=== PATIENT | male | born 1955 | race Caucasian/White ===

== ENCOUNTER 2017-01-09 17:19 | Emergency (ER) | payer BC ==
[2017-01-09] MEDS ORDERED: SODIUM CHLORIDE 0.9% 1,000 ML IV ONE (18:21)
--- NOTE | 2017-01-09 18:26 | ED ---
General Adult HPI - General Chief complaint: Recheck/Abnormal Lab/Rx Stated complaint: Dehydration-Dr Brooke. Time Seen by Provider: 01/09/17 18:13 Source: patient Mode of arrival: ambulatory Limitations: no limitations - History of Present Illness Initial comments: Patient is a 62-year-old male with past medical history of GERD and diabetes who presents to the emergency department for evaluation of abnormal outpatient labs. The patient states that last week he had 3 days of persistent nausea and vomiting, he reports that last Friday and he had syncopal episodes. He called his primary care provider and was seen on Friday of this week. He reports that at that time he was noted to have low blood pressure, blood work was obtained at that time. Patient reports that today he received a call from his primary care provider and was advised that his blood work indicated that he was severely dehydrated and his primary care provider advised him to come to the emergency department for further evaluation. Patient reports that he has been able to tolerate by mouth intake for the past few days, he reports he is eating and drinking well. He denies any further episodes of nausea or vomiting. She denies any further lightheadedness or syncopal episodes since last week. He reports that his primary care provider performed EKG on Friday and advised him that there were no acute findings. Patient reports that he has been diagnosed with GERD and that every 2-3 weeks he seems to have episodes where he has worsening epigastric abdominal burning, nausea and vomiting. He reports that he's been trying to keep track of this and believes that these episodes are caused by eating chicken. He states that he has made it a point to begin avoiding this in his diet to see if this improves his symptoms. Patient does report being compliant with his oral medications including Protonix. - Related Data Home Medications Medication Instructions Recorded Confirmed Allopurinol [Zyloprim] 300 mg PO DAILY 01/09/17 01/09/17 Aspirin [Adult Low Dose Aspirin EC] 81 mg PO DAILY 01/09/17 01/09/17 Benazepril [Lotensin] 10 mg PO DAILY PRN 01/09/17 01/09/17 Bisoprolol-Hctz 5-6.25 mg [Ziac 1 tab PO DAILY 01/09/17 01/09/17 5-6.25] Ezetimibe [Zetia] 10 mg PO DAILY 01/09/17 01/09/17 INSULIN LISPRO (HumaLOG) [HumaLOG] See Protocol SQ TID 01/09/17 01/09/[address] [place]-3 Fatty Acids/Fish Oil [Fish 1 cap PO BID 01/09/17 01/09/17 Oil 1,000 mg Softgel] Pantoprazole [Protonix] 40 mg PO DAILY 01/09/17 01/09/17 Pitavastatin Calcium [Livalo] 1 mg PO DAILY 01/09/17 01/09/17 valACYclovir HCL [Valtrex] 500 mg PO DAILY 01/09/17 01/09/17 Allergies Allergy/AdvReac Type Severity Reaction Status Date / Time No Known Allergies Allergy Verified 01/09/17 19:08 Review of Systems ROS Statement: Those systems with pertinent positive or pertinent negative responses have been documented in the HPI. ROS Other: All systems not noted in ROS Statement are negative. Constitutional: Reports: chills (With episodes of vomiting last week). Denies: fever Eyes: Denies: vision change ENT: Denies: congestion Respiratory: Denies: cough, dyspnea Cardiovascular: Reports: syncope (Last week, January 01 & ). Denies: chest pain, palpitations Endocrine: Reports: fatigue Gastrointestinal: Reports: nausea, vomiting Genitourinary: Denies: urgency, dysuria Musculoskeletal: Denies: back pain Skin: Denies: rash, lesions Neurological: Denies: headache, weakness, numbness, paresthesias, confusion Psychiatric: Denies: anxiety, depression Hematological/Lymphatic: Denies: easy bleeding, easy bruising Past Medical History Past Medical History: Diabetes Mellitus, Hyperlipidemia, Hypertension Additional Past Medical History / Comment(s): back pain, syncope History of Any Multi-Drug Resistant Organisms: None Reported Past Surgical History: Hernia Repair, Orthopedic Surgery Additional Past Surgical History / Comment(s): dental implant Past Psychological History: No Psychological Hx Reported Smoking Status: Never smoker Past Alcohol Use History: Daily Past Drug Use History: None Reported General Exam Limitations: no limitations General appearance: alert, in no apparent distress Head exam: Present: atraumatic, normocephalic Eye exam: Present: normal appearance, PERRL ENT exam: Present: normal exam, normal oropharynx, mucous membranes moist Neck exam: Present: normal inspection Respiratory exam: Present: normal lung sounds bilaterally Cardiovascular Exam: Present: regular rate, normal rhythm, normal heart sounds. Absent: tachycardia GI/Abdominal exam: Present: soft. Absent: distended, tenderness, guarding, rebound, rigid Rectal exam: Present: deferred Extremities exam: Present: normal inspection Neurological exam: Present: alert, oriented X3 Psychiatric exam: Present: normal affect, normal mood Skin exam: Present: warm, dry, intact, normal color. Absent: rash Course Vital Signs 01/09/17 01/09/17 01/09/17 17:48 19:19 20:31 Temperature 98.1 F 99.2 F 98.1 F Pulse Rate 80 69 71 Respiratory 20 18 19 Rate Blood Pressure 184/92 170/97 173/97 O2 Sat by Pulse 99 100 99 Oximetry Medical Decision Making - Medical Decision Making Patient was seen and evaluated History is obtained from the patient Clinically patient does not appear dehydrated, blood pressure is normal labs and IV fluids were ordered Labs revealed mild elevation of AST and ALT this is consistent with the patient' s recent history of vomiting Patient has significant hypomagnesemia, IV replacement was ordered Hypo-kalemia replaced with by mouth potassium Patient reports he is feeling well, has been able tolerate oral intake well waiting in the emergency department Patient is denying any abdominal pain, eager for discharge home Patient decided he didn't want to continue to wait for IV magnesium infusion, he agreed to wait for 1 g. One oral dose was also ordered. Second Gram of magnesium discontinued All questions pertaining to care were answered to the best of my ability. Results were discussed with the patient and patient was advised to follow up with his primary care physician for repeat evaluation of his elevated liver enzymes and kidney function. A she expressed understanding and agreement with the plan for discharge home with close follow-up with primary care. Patient was advised to return to the emergency department if he develops any worsening abdominal pain, nausea or vomiting or any signs or symptoms of dehydration. - Lab Data Result diagrams: 01/09/17 18:50 01/09/17 18:50 Lab Results 01/09/17 01/09/17 01/09/17 Range/Units 18:50 18:50 18:50 WBC 3.9 (3.8-10.6) k/uL RBC 3.84 L (4.30-5.90) m/uL Hgb 14.0 (13.0-17.5) gm/dL Hct 37.8 L (39.0-53.0) % MCV 98.4 (80.0-100.0) fL MCH 36.4 H (25.0-35.0) pg MCHC 37.0 (31.0-37.0) g/dL RDW 13.0 (11.5-15.5) % Plt Count 129 L (150-450) k/uL Neutrophils % 55 % Lymphocytes % 27 % Monocytes % 12 % Eosinophils % 1 % Basophils % 1 % Neutrophils # 2.2 (1.3-7.7) k/uL Lymphocytes # 1.1 (1.0-4.8) k/uL Monocytes # 0.5 (0-1.0) k/uL Eosinophils # 0.0 (0-0.7) k/uL Basophils # 0.0 (0-0.2) k/uL Sodium 138 (137-145) mmol/L Potassium 3.4 L (3.5-5.1) mmol/L Chloride 92 L (98-107) mmol/L Carbon Dioxide 30 (22-30) mmol/L Anion Gap 16 mmol/L BUN 30 H (9-20) mg/dL Creatinine 1.10 (0.66-1.25) mg/dL Est GFR (MDRD) Af Amer >60 (>60 ml/min/1.73 sqM) Est GFR (MDRD) Non-Af >60 (>60 ml/min/1.73 sqM) Glucose 113 H (74-99) mg/dL Calcium 9.6 (8.4-10.2) mg/dL Magnesium 1.2 L (1.6-2.3) mg/dL Total Bilirubin 0.7 (0.2-1.3) mg/dL AST 96 H (17-59) U/L ALT 76 H (21-72) U/L Alkaline Phosphatase 94 (38-126) U/L Total Protein 7.9 (6.3-8.2) g/dL Albumin 4.9 (3.5-5.0) g/dL Urine Color Light Yellow Urine Appearance Clear (Clear) Urine pH 6.0 (5.0-8.0) Ur Specific [place] 1.003 (1.001-1.035) Urine Protein Negative (Negative) Urine Glucose (UA) Negative (Negative) Urine Ketones Negative (Negative) Urine Blood Negative (Negative) Urine Nitrite Negative (Negative) Urine Bilirubin Negative (Negative) Urine Urobilinogen <2.0 (<2.0) mg/dL Ur Leukocyte Esterase Negative (Negative) Disposition Clinical Impression: Dehydration, Elevated transaminase level Disposition: HOME SELF-CARE Condition: Good Instructions: Dehydration (ED) Referrals: Damon Jenkins DO [Primary Care Provider] - 1-2 days Time of Disposition: 21:54
[2017-01-09 19:07] LABS: Appearance,Urine Clear (Clear); Bilirubin,Urine Negative (Negative); Glucose,Urine (UA) Negative (Negative); Ketones,Urine Negative (Negative); Leukocyte Esterase,Urine Negative (Negative); Nitrite,Urine Negative (Negative); Protein,Urine Negative (Negative); Specific Gravity,Urine 1.003 (1.001-1.035); UA Billing (MACRO vs. MICRO) CHEM; Urobilinogen,Urine <2.0 mg/dL (<2.0)
[2017-01-09 19:16] LABS: Basophils % (A) 1 %; CH 36.2; CHCM 36.9; Eosinophils % (A) 1 %; HCT 37.8 % (39.0-53.0); HDW 2.46; Luc # (Auto) 0.16; Luc % (Auto) 4; Lymphocytes # (A) 1.1 k/uL (1.0-4.8); Lymphocytes % (A) 27 %; MCH 36.4 pg (25.0-35.0); MCV 98.4 fL (80.0-100.0); Mean Platelet Volume 8.1; Monocytes # (A) 0.5 k/uL (0-1.0); Monocytes % (A) 12 %; Neutrophils # (A) 2.2 k/uL (1.3-7.7); Neutrophils % (A) 55 %; RBC 3.84 m/uL (4.30-5.90); WBC 3.9 k/uL (3.8-10.6); WBC (Perox) 3.76
[2017-01-09 19:46] LABS: ALT 76 U/L (21-72); AST 96 U/L (17-59); Alkaline Phosphatase 94 U/L (38-126); Anion Gap 16 mmol/L; Blood Urea Nitrogen 30 mg/dL (9-20); Calcium 9.6 mg/dL (8.4-10.2); Carbon Dioxide 30 mmol/L (22-30); Chloride 92 mmol/L (98-107); Glucose 113 mg/dL (74-99); Magnesium 1.2 mg/dL (1.6-2.3); Non-African American GFR(MDRD) >60 (>60 ml/min/1.73 sqM); Potassium 3.4 mmol/L (3.5-5.1); Sodium 138 mmol/L (137-145); Total Bilirubin 0.7 mg/dL (0.2-1.3); Total Protein 7.9 g/dL (6.3-8.2)
[2017-01-09] MEDS ORDERED: POTASSIUM CHLORIDE ORAL LIQUID 40 MEQ/30 ML CUP PO ONE (20:26)
[2017-01-09] MEDS ORDERED: MAGNESIUM SULFATE-D5W PMX 1 GM in DEXTROSE/WATER 1 100ML.BAG IVPB SCH (21:00)
[2017-01-09] MEDS ORDERED: MAGNESIUM OXIDE 400 MG TAB PO STA (21:35)
[2017-01-09 22:08] VITALS: BP 143/82; PULSE 69; RESP 18; TEMP 98.4
== END 2017-01-09 22:08 | disposition home or self-care (01) ==
LOC: EC 17:19
DX: E86.0 Dehydration (principal); R74.0 Nonspecific elevation of levels of transaminase and lactic acid dehydrogenase [LDH]; E11.9 Type 2 diabetes mellitus without complications; E78.5 Hyperlipidemia, unspecified; I10 Essential (primary) hypertension; Z79.82 Long term (current) use of aspirin; Z79.4 Long term (current) use of insulin; Z79.899 Other long term (current) drug therapy
CPT/HCPCS: 99283; 96365; 36415; 80053; 83735; 85025; 81003; J3475

== ENCOUNTER 2018-03-13 13:10 | Emergency (ER) | payer BC, OTHER ==
[2018-03-13 13:17] VITALS: BP 147/87; PULSE 78; RESP 18; TEMP 98.4
--- NOTE | 2018-03-13 13:20 | ED ---
Lower Extremity Injury HPI - General Chief Complaint: Extremity Injury, Lower Stated Complaint: [facility] Rt knee injury Time Seen by Provider: 03/13/18 13:17 Source: patient, RN notes reviewed Mode of arrival: ambulatory Limitations: no limitations - History of Present Illness Initial Comments: This is 63-year-old male with past medical history of type 2 diabetes and hypertension presenting today for chief complaint of right knee pain. 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 He states that it was humid and his glasses fogged up, he was unable to see the cement bumpers across the ground. He tripped over one when he went to catch his balance he felt as though he twisted his right knee. Patient denies any dislocation, popping or cracking sounds. Patient was able to fully weight-bear after. He stated that he immediately noticed some right knee discomfort however it was "not that bad" . As the days progressed patient admitted to worsening right knee pain, especially in days that he work. Patient stated that he did have a few days off which helped with the pain. Patient denies numbness, tingling, loss sensation, decreased range of motion, soft tissue swelling, erythema, fever, chills, recent procedure on the knees. Patient states that pain is currently a 4 out of 10. It is a dull aching pain localized to the right knee. Patient has not taken any pain medication for relief. Patient denies falling hitting his head, loss consciousness or injury to any other extra knee. Patient denies any known ALLERGIES. Remainder of ROS was negative. - Related Data Home Medications Medication Instructions Recorded Confirmed Allopurinol [Zyloprim] 300 mg PO DAILY 01/09/17 01/09/17 Aspirin [Adult Low Dose Aspirin EC] 81 mg PO DAILY 01/09/17 01/09/17 Benazepril [Lotensin] 10 mg PO DAILY PRN 01/09/17 01/09/17 Bisoprolol-Hctz 5-6.25 mg [Ziac 1 tab PO DAILY 01/09/17 01/09/17 5-6.25] Ezetimibe [Zetia] 10 mg PO DAILY 01/09/17 01/09/17 INSULIN LISPRO (HumaLOG) [HumaLOG] See Protocol SQ TID 01/09/17 01/09/17 [place]-3 Fatty Acids/Fish Oil [Fish 1 cap PO BID 01/09/17 01/09/17 Oil 1,000 mg Softgel] Pantoprazole [Protonix] 40 mg PO DAILY 01/09/17 01/09/17 Pitavastatin Calcium [Livalo] 1 mg PO DAILY 01/09/17 01/09/17 valACYclovir HCL [Valtrex] 500 mg PO DAILY 01/09/17 01/09/17 Allergies Allergy/AdvReac Type Severity Reaction Status Date / Time No Known Allergies Allergy Verified 03/13/18 13:17 Review of Systems ROS Statement: Those systems with pertinent positive or pertinent negative responses have been documented in the HPI. ROS Other: All systems not noted in ROS Statement are negative. Constitutional: Denies: fever, chills, night sweats Eyes: Denies: vision change ENT: Denies: ear pain, throat pain Respiratory: Denies: cough, dyspnea, wheezes, hemoptysis, stridor Cardiovascular: Denies: chest pain, palpitations, dyspnea on exertion Gastrointestinal: Denies: abdominal pain, nausea, vomiting, diarrhea, constipation Genitourinary: Denies: urgency, dysuria, frequency, hematuria Musculoskeletal: Reports: arthralgia. Denies: back pain, joint swelling Skin: Denies: rash, lesions Past Medical History Past Medical History: Diabetes Mellitus, Hyperlipidemia, Hypertension Additional Past Medical History / Comment(s): back pain, syncope History of Any Multi-Drug Resistant Organisms: None Reported Past Surgical History: Hernia Repair, Orthopedic Surgery Additional Past Surgical History / Comment(s): dental implant Past Psychological History: No Psychological Hx Reported Smoking Status: Never smoker Past Alcohol Use History: None Reported Past Drug Use History: None Reported General Exam - General Exam Comments Initial Comments: General: The patient is awake and alert, in no distress, and does not appear acutely ill. Eye: Pupils are equal, round and reactive to light, extra-ocular movements are intact. No nystagmus. There is normal conjunctiva bilaterally. No signs of icterus. Ears, nose, mouth and throat: There are moist mucous membranes and no oral lesions. Neck: The neck is supple, there is no tenderness or JVD. Cardiovascular: There is a regular rate and rhythm. No murmur, rub or gallop is appreciated. Respiratory: Lungs are clear to auscultation, respirations are non-labored, breath sounds are equal. No wheezes, stridor, rales, or rhonchi. Musculoskeletal: Full active and passive ROM of the hips, knees-extension/ flexion and ankles b/l, no tenderness. there is mild creptius noted of the right knee, no noted laxity. Strength 5/5 with these joints of the LE equally b /l, including the knee joints with flexion and extension b/l. Extensor mechanism intact. Sensation intact of the LE from hip to toes equally b/l. DP pulses equal bilaterally 2+. No noted swelling, ecchymosis, or gross deformities. Knees appear equal in appearance upon inspection. No posterior tenderness to palpation. Neurological: A&O x 3. CN II-XII intact, There are no obvious motor or sensory deficits. Coordination appears grossly intact. Speech is normal. Skin: Skin is warm and dry and no rashes or lesions are noted. Psychiatric: Cooperative, appropriate mood & affect, normal judgment. Limitations: no limitations Course Vital Signs 03/13/18 13:15 Temperature 98.4 F Pulse Rate 78 Respiratory 18 Rate Blood Pressure 147/87 O2 Sat by Pulse 97 Oximetry Medical Decision Making - Medical Decision Making XR of the right knee (-) however we cannot rule out ligamentous injury/meniscus injury. There was no soft tissue swelling or laxity noted. Neurovascularly intact. At this time we feel pt has a knee sprain, however cannot r/o ligamentous injury. Pt stated that he has a knee immobilizer at home. Pt will be given RICE instruction, use of NSAIDs, with orthopedic f/u. Case discussed with Dr. Henley who agrees with impression and plan. Pt agreed with plan, denied questions at this time. Disposition Clinical Impression: Pain of right knee after injury Disposition: HOME SELF-CARE Condition: Good Instructions: Knee Sprain (ED), R.I.C.E. Treatment (ED) Additional Instructions: Please use medication as discussed. Please follow-up with family doctor in the next 2 days, if symptoms have not improved in the next week please follow-up with orthopedic surgery. Please return to emergency room if the symptoms increase or worsen or for any other concerns. Is patient prescribed a controlled substance at d/c from ED?: No Referrals: Damon Jenkins, [Primary Care Provider] - 1-2 days Blas De La Cruz MD [Medical Doctor] - 1-2 days Time of Disposition: 14:23
[2018-03-13] MEDS ORDERED: IBUPROFEN 600 MG TAB PO STA (13:27)
--- NOTE | 2018-03-13 14:46 | XR ---
EXAMINATION TYPE: XR knee complete RT DATE OF EXAM: 03/13/2018 CLINICAL HISTORY: Fall twisting injury 10 days ago with increasing lateral pain TECHNIQUE: Three views of the right knee are obtained. A repeat lateral view was acquired. COMPARISON: None. FINDINGS: There is no acute fracture/dislocation evident in right knee. There is mild to moderate tr icompartment joint space loss is prominent patellofemoral compartment with mild spurring. There is pr ominent spurring from anterior inferior aspect of the patella. Faint calcification is seen in Hoffa's fat pad. Posterior vascular calcification is noted. IMPRESSION: There is no acute fracture or dislocation in the right knee.
== END 2018-03-13 15:05 | disposition home or self-care (01) ==
LOC: EC 13:10
DX: M25.561 Pain in right knee (principal); E78.5 Hyperlipidemia, unspecified; I10 Essential (primary) hypertension; E11.9 Type 2 diabetes mellitus without complications; Z79.4 Long term (current) use of insulin; Z79.82 Long term (current) use of aspirin; Z79.899 Other long term (current) drug therapy; Z87.39 Personal history of other diseases of the musculoskeletal system and connective tissue; W18.49XA Other slipping, tripping and stumbling without falling, initial encounter; Y93.89 Activity, other specified; Y92.830 Public park as the place of occurrence of the external cause; Y99.0 Civilian activity done for income or pay
CPT/HCPCS: 99283

== ENCOUNTER → 2019-03-24 | Outpatient (CLI) | payer OTHER ==
--- NOTE | 2019-03-24 12:45 | XR ---
EXAMINATION TYPE: XR knee complete RT DATE OF EXAM: 03/24/2019 CLINICAL HISTORY: Twisting injury with pain. TECHNIQUE: Three views of the right knee are obtained. COMPARISON: Prior right knee x-ray March 13, 2018 FINDINGS: There is no acute fracture/dislocation evident in the right knee. The [id number] tr icompartmental joint space loss with mild patellofemoral compartment spurring is redemonstrated. Post erior vascular calcification is again seen. From anteroinferior patella is again identified. Some faint calcification Hoffa's fat pad redemonstra ganesh. IMPRESSION: There is no acute fracture or dislocation in the right knee. No significant change from prior.
== END ==
LOC: RADXRMAIN 12:24
PROVIDERS: ATTEND Emergency Medicine
DX: S83.91XA Sprain of unspecified site of right knee, initial encounter (principal)